=== PATIENT | male | born 1935 | race Caucasian/White ===

== ENCOUNTER 2017-03-26 18:49 | Inpatient (IN) ==
[2017-03-26] MEDS ORDERED: XOPENEX NEB ONE (19:13)
[2017-03-26] MEDS ORDERED: XOPENEX NEB INH ONE (19:25)
[2017-03-26 19:26] LABS: MANUAL DIFF NEEDED? NO
[2017-03-26 19:30] LABS: BASO% 0.1 % (0.0-0.8); EOS# 0.02 X1000 (0.0-0.7); EOS% 0.2 % (0.0-10.0); HEMATOCRIT 32.9 % (42.0-52.0); HEMOGLOBIN 11.2 g/dL (14.0-18.0); IMM GRAN# 0.02 X1000 (0.0-0.04); IMM GRAN% 0.2 % (0.0-0.5); LYMPH# 1.46 X1000 (1.2-3.4); LYMPH% 15.2 % (20.5-51.1); MCH 32.4 PG (27-31); MCV 95.1 FL (81-99); MONO# 1.68 X1000 (0.11-0.59); MONO% 17.5 % (1.7-9.3); MPV 8.8 FL (7.4-10.4); NEUT% 66.8 % (42.2-75.2); PLT 262 X1000 (130-400); RBC 3.46 XMIL (4.7-6.1)
[2017-03-26 19:41] LABS: INR 1.02 (0.86-1.15); PROTIME 14.2 Seconds (12.1-15.5)
[2017-03-26 19:50] LABS: ALBUMIN 3.7 g/dL (3.5-5.0); CALCIUM 9.1 mg/dL (8.8-10.2); POTASSIUM 3.6 mmol/L (3.5-5.1); TOTAL BILIRUBIN 0.9 mg/dL (0.20-1.00); TOTAL PROTEIN 7.5 g/dL (6.3-8.3)
[2017-03-26] MEDS ORDERED: SOLU-MEDROL IV ONE (20:00)
[2017-03-26] MEDS ORDERED: DUONEB (A & A) INH ONE (20:01)
--- NOTE | 2017-03-26 20:33 | Diag Imaging Result Doc PS360 ---
CHEST-PORTABLE - 03/26/2017 INDICATION: SOB TECHNIQUE: COMPARISON: None FINDINGS: There is right hilar enlargement. There appear to be surgical suture lines in the lung at the right hilum. There is bibasilar interstitial fibrosis. No large infiltrate. No pneumothorax or large effusion. IMPRESSION: Nonspecific findings. Electronically signed by Alfa Giordano 03/26/2017 8:30 PM
--- NOTE | 2017-03-26 20:35 | EKG Report ---
Test Performed on : 03/26/2017 7:20:00 PM Test Reason : SOB Blood Pressure : / mmHG Vent. Rate : 106 BPM Atrial Rate : 106 BPM P-R Int : 182 ms QRS Dur : 134 ms QT Int : 362 ms P-R-T Axes : 074 059 050 degrees QTc Int : 480 ms Sinus tachycardia. Nonspecific intraventricular block Cannot rule out Septal infarct (cited on or before 26-MAR-2017) Abnormal ECG When compared with ECG of 26-MAR-2017 19:19, (Unconfirmed) Questionable change in initial forces of Septal leads Unconfirmed Result
--- NOTE | 2017-03-26 20:47 | Diag Imaging Result Doc PS360 ---
CT ANGIOGRAM/PULMONARY ARTERIES - 03/26/2017 INDICATION: elevated ddimer/ hypoxia- TECHNIQUE: Axial CT images were obtained after administering intravenous contrast. Coronal MIP images were generated. A CT dose reduction protocol was used. COMPARISON: None FINDINGS: There is a small to moderate amount of ill-defined soft tissue density at the right hilum consistent with adenopathy. There are also surgical suture lines in this region. 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 There is some fibrosis at the right hilum suggesting radiation changes. There is severe COPD with chronic bronchitis. There is bronchiectasis in the lung bases particularly on the left side. There is ill-defined infiltrate in the lingula and left lower lobe consistent with bronchopneumonia. There is some trace infiltrate in the right lower lobe as well. There is a partially demonstrated abdominal aortic aneurysm status post internal stent repair. The stent is patent. This aneurysm measures 5.1 x 4.2 cm. Heart size is normal. There is no visible pulmonary embolism. 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 No acute bony lesions. IMPRESSION: 1. No pulmonary embolism. 2. Severe COPD with chronic bronchitis. Bronchopneumonia in the lung bases. 3. Abdominal aortic aneurysm. Patent internal stent repair. 4. Ill-defined adenopathy at the left hilum. Electronically signed by Alfa Giordano 03/26/2017 8:45 PM
[2017-03-26] MEDS ORDERED: TESSALON PO ONE (21:13)
[2017-03-26 22:22] LABS: BILIRUBIN URINE NEGATIVE (NEGATIVE); BLOOD URINE 2+ (NEGATIVE); CLARITY VERY CLOUDY (CLEAR); COLOR YELLOW; GLUCOSE URINE NEGATIVE (NEGATIVE); LEUKOCYTES URINE 1+ (NEGATIVE); NITRITE URINE POSITIVE (NEGATIVE); PROTEIN URINE 2+(100 mg/dL) mg/dL (NEGATIVE); UROBILINOGEN URINE NORMAL
[2017-03-26 22:25] LABS: URINE CAST NONE SEEN /LPF; URINE CRYSTAL NONE SEEN /HPF; URINE CULTURE PL NEEDED? YES; URINE EPITHELIAL CELLS <10 /HPF (<10); URINE SOURCE CATH
[2017-03-26] MEDS: ROCEPHIN 1 GM in NS 50 ML IV SCH (23:36)
[2017-03-26] MEDS: ZITHROMAX 500 MG/NS 500 MG/250 ML IVPB IV SCH (23:36)
[2017-03-27] MEDS ORDERED: DUONEB (A & A) INH PRN (03:20)
--- NOTE | 2017-03-27 05:21 | EKG Report ---
Test Performed on : 03/26/2017 8:46:18 PM Test Reason : No Order in [employer] Blood Pressure : / mmHG Vent. Rate : 114 BPM Atrial Rate : 115 BPM P-R Int : 000 ms QRS Dur : 138 ms QT Int : 336 ms P-R-T Axes : 000 063 054 degrees QTc Int : 463 ms Wide QRS rhythm. Right bundle branch block Septal infarct , age undetermined Abnormal ECG When compared with ECG of 26-MAR-2017 19:20, (Unconfirmed) Wide QRS rhythm. has replaced Sinus rhythm. Unconfirmed Result
[2017-03-27] MEDS ORDERED: SOLU-MEDROL IV SCH (09:15)
[2017-03-27] MEDS: DUONEB (A & A) INH SCH ×4 (11:55→23:36)
[2017-03-27] MEDS ORDERED: MIRALAX PO ONE (15:51)
[2017-03-27] MEDS: SOLU-MEDROL IV SCH (17:59)
[2017-03-27] MEDS: ROCEPHIN 1 GM in NS 50 ML IV SCH (22:23)
[2017-03-28] MEDS: SOLU-MEDROL IV SCH ×2 (01:08→09:17)
[2017-03-28] MEDS: ZITHROMAX 500 MG/NS 500 MG/250 ML IVPB IV SCH (01:08)
[2017-03-28] MEDS: DUONEB (A & A) INH SCH ×3 (03:35→11:19)
[2017-03-28 06:25] LABS: MANUAL DIFF NEEDED? NO
[2017-03-28 06:31] LABS: HEMATOCRIT 30.2 % (42.0-52.0); HEMOGLOBIN 10.1 g/dL (14.0-18.0); IMM GRAN# 0.04 X1000 (0.0-0.04); IMM GRAN% 0.4 % (0.0-0.5); LYMPH# 1.43 X1000 (1.2-3.4); LYMPH% 14.7 % (20.5-51.1); MCH 31.8 PG (27-31); MCHC 33.4 g/dL (33-37); MONO# 0.94 X1000 (0.11-0.59); MONO% 9.7 % (1.7-9.3); MPV 9.2 FL (7.4-10.4); NEUT% 75.2 % (42.2-75.2); PLT 262 X1000 (130-400); RBC 3.18 XMIL (4.7-6.1)
[2017-03-28 06:59] LABS: AGAP 10; BUN 27 mg/dL (8-22); CALCIUM 8.9 mg/dL (8.8-10.2); CHLORIDE 103 mmol/L (98-107); COSMO 285; POTASSIUM 4.3 mmol/L (3.5-5.1); SODIUM 138 mmol/L (136-145); TCO2 25 mmol/L (25-35)
[2017-03-28 11:45] VITALS: BP 145/72
[2017-03-28] MEDS ORDERED: AUGMENTIN PO SCH (21:00)
[2017-03-29] MEDS ORDERED: ZITHROMAX PO SCH (09:00)
[2017-03-29] MEDS ORDERED: PREDNISONE PO SCH (09:00)
== END 2017-03-28 16:12 | disposition home or self-care (01) ==
LOC: P.ED 18:49 → SUATTDRO 21:52 → P.MEDSURG 21:52
PROVIDERS: ADMIT Family Medicine; ATTEND Internal Medicine